=== PATIENT | female | born 1980 | race Caucasian/White ===

== ENCOUNTER 2021-06-16 09:56 | Emergency (ER) | payer OTHER ==
[2021-06-16 10:34] LABS: Appearance CLEAR (CLEAR); Bilirubin NEGATIVE (NEGATIVE); Dipstick done @ ? MAIN LAB; Glucose NEGATIVE (NEGATIVE); Ketones NEGATIVE (NEGATIVE); Nitrite NEGATIVE (NEGATIVE); Ph 5.5 (5-6); Protein,Urine Dip NEGATIVE (Negative); RBC NEGATIVE Ery/ul (0-5); Specific Gravity 1.015 (1.005-1.025); Urobilinogen 0.2 mg/dL (0-1)
[2021-06-16 10:35] LABS: Bacteria RARE /HPF (NEGATIVE); Epithelial Cells RARE /HPF (FEW); RBC 0-2 /HPF (0-2); Urine Cultured Indicated? NO
[2021-06-16 11:14] VITALS: PULSE 56
[2021-06-16 11:19] VITALS: BP 124/73
[2021-06-16] MEDS ORDERED: TORAdol 30 mg Injection ONE (11:19)
[2021-06-16] MEDS ORDERED: DECADRON 10MG INJ. ONE (11:19)
[2021-06-16] MEDS: TORAdol 30 mg Injection IM ONE (11:32)
[2021-06-16] MEDS: DECADRON 10MG INJ. IM ONE (11:34)
--- NOTE | 2021-06-16 11:35 | ERPHSYRPT ---
- History of Present Illness Time Seen by Provider: 06/16/21 10:10 Source: patient Exam Limitations: no limitations Patient Subjective Stated Complaint: Pt states "My throat hurts, my head hurts, my left ear is killing me and my belly hurts. I just do not feel well." Triage Nursing Assessment: Pt is a resident of the [facility] and said she thinks there is a bug going around the house. Pt presented alert and oriented X 3, skin pwd pt ambulates with an upright steady gait, able to speak in clear full setnences Physician History: Patient is a 41-year-old female presents to emergency department with complaints of a sore throat left ear pain and generally feeling unwell. Symptoms started 3 days ago. No associated nausea vomiting or diarrhea. No rash. No fever. Patient mention that she is experiencing abdominal pain but she has no abdominal pain at this time. There is no abdominal tenderness. No shortness of breath. No chest pain. Symptoms are mild to moderate in intensity. No specific worsening improving factors. Patient voices no other complaints or concerns at this time. Timing/Duration: day(s) (3 days ago) Severity: moderate Modifying Factors: Improves With: nothing Associated Symptoms: denies symptoms Allergies/Adverse Reactions: Penicillins Allergy (Verified 02/19/16 10:10) Home Medications: Bisoprolol Fumarate 10 mg PO DAILY 06/16/21 [History] Cyclobenzaprine HCl 10 mg [Cyclobenzaprine 10 MG] 10 mg PO DAILY 06/16/21 [History] Hx Tetanus, Diphtheria Vaccination/Date Given: Yes Hx Influenza Vaccination/Date Given: No Hx Pneumococcal Vaccination/Date Given: No Immunizations Up to Date: Yes Travel Risk - International Travel Have you traveled outside of the country in past 3 weeks: No - Coronavirus Screening Are you exhibiting any of the following symptoms?: Yes Symptoms: Headaches/Body Aches/Fatigue Close contact with a COVID-19 positive Pt in past 14-21 Days: No - Vaccine Status Have you recieved a Covid-19 vaccination: No - Review of Systems Constitutional: No Symptoms, No Fever, No Chills Eyes: No Symptoms Ears, Nose, & Throat: No Symptoms Respiratory: No Symptoms, No Cough, No Dyspnea Cardiac: No Symptoms, No Chest Pain, No Edema, No Syncope Abdominal/Gastrointestinal: No Symptoms, No Abdominal Pain, No Nausea, No Vomiting, No Diarrhea Genitourinary Symptoms: No Symptoms, No Dysuria Musculoskeletal: No Symptoms, No Back Pain, No Neck Pain Skin: No Symptoms, No Rash Neurological: No Symptoms, No Dizziness, No Focal Weakness, No Sensory Changes Psychological: No Symptoms Endocrine: No Symptoms Hematologic/Lymphatic: No Symptoms Immunological/Allergic: No Symptoms All Other Systems: Reviewed and Negative - Past Medical History Pertinent Past Medical History: Yes Neurological History: Migraines Respiratory History: COPD - Past Surgical History Past Surgical History: Yes Other Surgical History: virgil. tubal. right arm. right shoulder - Social History Smoking Status: Current every day smoker How long have you smoked: years Exposure to second hand smoke: Yes Drug Use: methamphetamines Patient Lives Alone: No - Female History Hx Last Menstrual Period: tubal period stopped Hx Now: No - Nursing Vital Signs Nursing Vital Signs: Initial Vital Signs Temperature 97.8 F 06/16/21 10:05 Pulse Rate 61 06/16/21 10:05 Respiratory Rate 20 06/16/21 10:05 Blood Pressure 125/74 06/16/21 10:05 O2 Sat by Pulse Oximetry 99 06/16/21 10:05 Pain Scale Pain Intensity 4 - Physical Exam General Appearance: no apparent distress, alert Eye Exam: PERRL/EOMI, eyes nml inspection Ears, Nose, Throat Exam: normal ENT inspection, TMs normal, pharynx normal, moist mucous membranes Neck Exam: normal inspection, non-tender, supple, full range of motion Respiratory Exam: normal breath sounds, lungs clear, airway intact, No respiratory distress Cardiovascular Exam: regular rate/rhythm, normal heart sounds, normal peripheral pulses Gastrointestinal/Abdomen Exam: soft, normal bowel sounds, No tenderness, No mass Back Exam: normal inspection, normal range of motion, No CVA tenderness, No vertebral tenderness Extremity Exam: normal inspection, normal range of motion, pelvis stable Neurologic Exam: alert, oriented x 3, cooperative, normal mood/affect, nml cer ebellar function, nml station & gait, sensation nml, No motor deficits Skin Exam: normal color, warm, dry, No rash Lymphatic Exam: No adenopathy SpO2 Interpretation: normal SpO2: 99 O2 Delivery: Room Air - Course Nursing assessment & vital signs reviewed: Yes Ordered Tests: Medication Summary Discontinued Medications Generic Name Dose Route Start Last Admin Trade Name Freq PRN Reason Stop Dose Admin Dexamethasone Sodium Phosphate 10 mg 06/16/21 11:16 Dexamethasone Sod Phosphate 10 Mg/Ml IM 06/16/21 11:17 STAT ONE Ketorolac Tromethamine 30 mg 06/16/21 11:16 Ketorolac Tromethamine 30 Mg/Ml Inj IM 06/16/21 11:17 STAT ONE Lab/Rad Data: Laboratory Results 06/16/21 06/16/21 Range/Units Unknown 10:18 Urinalys Dipstick Clnc MAIN LAB Urine Color Cancelled Urine Appearance Cancelled Urine pH Cancelled Ur Specific [place] Cancelled Urine Protein Cancelled POC Urine Protein Conf NEGATIVE (Negative) Urine Ketones Cancelled Urine Blood Cancelled Urine Nitrite Cancelled Urine Bilirubin Cancelled Urine Urobilinogen Cancelled Ur Leukocyte Esterase Cancelled Urine Leukocytes SMALL (NEGATIVE) Urine WBC (Auto) 3-5 (0-5) /HPF Urine RBC (Auto) 0-2 (0-2) /HPF U Epithel Cells (Auto) RARE (FEW) /HPF Urine Bacteria (Auto) RARE (NEGATIVE) /HPF Urine RBC NEGATIVE (0-5) Tripp/ul U Non-Squamous Epi Cells Cancelled Ur Culture Indicated? NO Urine Culture Reflexed Cancelled Urine Glucose NEGATIVE (NEGATIVE) mg/dL Group A Strep Antibody NOT DETECTED (NEGATIVE) - Progress Progress: improved Progress Note: Rapid strep negative. Patient received Toradol and Decadron. No indication for antibiotics at this time. Urinalysis negative for UTI. Will discharge home. Patient likely experiencing a viral syndrome. Patient agrees to follow-up with her primary care doctor within 48 hours for reevaluation. Patient voices no other complaints or concerns at this time. Portions of this note were created with voice recognition technology. There may be grammatical, spelling, punctuation or sound alike errors 06/16/21 11:43 Counseled pt/family regarding: lab results, diagnosis, need for follow-up - Departure Departure Disposition: Home Clinical Impression: Viral pharyngitis, Viral syndrome Condition: Stable Critical Care Time: No Referrals: FREDER[facility] [employer] [Primary Care Provider] - Follow up/PCP as directed Additional Instructions: Discharge/Care Plan PAR[facility] RENDON was seen on 06/16/21 in the Emergency Room. The patient was counseled regarding Diagnosis,Lab results, Imaging studies, need for follow up and when to return to the Emergency Room. Prescriptions given: Discharge Note I have spoken with the patient and/or caregivers. I have explained the patient's condition, diagnosis and treatment plan based on the information available to me at this time. I have answered the patient's and/or caregiver's questions and addressed any concerns. The patient and/or caregivers have as good understanding of the patient's diagnosis, condition and treatment plan as can be expected at this point. The vital signs have been stable. The patient's condition is stable and appropriate for discharge from the emergency department. The patient will pursue further outpatient evaluation with the primary care physician or other designated or consulting physician as outlined in the discharge instructions. The patient and/or caregivers are agreeable to this plan of care and follow-up instructions have been explained in detail. The patient and/or caregivers have received these instruction. The patient/and or caregivers are aware that any significant change in condition or worsening of symptoms should prompt an immediate return to this or the closest emergency department or call 911.
[2021-06-16 11:36] VITALS: O2SAT 99
== END 2021-06-16 11:55 | disposition home or self-care (01) ==
LOC: ED 09:56
DX: J02.8 Acute pharyngitis due to other specified organisms (principal); B97.89 Other viral agents as the cause of diseases classified elsewhere; Z72.0 Tobacco use; H92.02 Otalgia, left ear; J44.9 Chronic obstructive pulmonary disease, unspecified
CPT/HCPCS: 81015; 87651; 96372; 99284; J1100; J1885

== ENCOUNTER 2021-07-08 11:21 | Emergency (ER) | payer OTHER ==
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
[2021-07-08] MEDS ORDERED: TORAdol 30 mg Injection ONE (12:46)
[2021-07-08] MEDS: TORAdol 30 mg Injection IM ONE (12:46)
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
[2021-07-08 13:13] VITALS: BP 148/98; PULSE 72
[2021-07-08 13:15] VITALS: O2SAT 99
== END 2021-07-08 13:40 | disposition home or self-care (01) ==
LOC: ED 11:21
DX: S50.11XA Contusion of right forearm, initial encounter (principal); Y04.2XXA Assault by strike against or bumped into by another person, initial encounter; T74.11XA Adult physical abuse, confirmed, initial encounter; Y07.03 Male partner, perpetrator of maltreatment and neglect; J84.10 Pulmonary fibrosis, unspecified; M79.631 Pain in right forearm; M25.521 Pain in right elbow; M25.531 Pain in right wrist; R07.81 Pleurodynia; J44.9 Chronic obstructive pulmonary disease, unspecified; Z72.0 Tobacco use; Z79.899 Other long term (current) drug therapy
CPT/HCPCS: 71110; 73070; 73090; 73100; 73120; 96372; 99284; J1885